=== PATIENT | female | born 1970 | race Hispanic/Latino ===

== ENCOUNTER → 2017-07-30 | Outpatient (CLI) | payer OTHER ==
--- NOTE | 2017-07-30 10:38 | Diagnostic Imaging Report ---
EXAMINATION: Bilateral breast ultrasound. INDICATION: Bilateral breast lumps. FINDINGS: By history, the patient has palpable abnormalities in the upper-outer aspect of each breast. The diagnostic mammogram performed earlier today in conjunction with this study failed to show any discrete mass in either the right or the left breast. On this study, there is no solid or cystic mass evident in the right breast. I suspect that the palpable abnormality in question may be secondary to fibroglandular tissue alone; however, if clinical concern regarding an underlying abnormality persists, then biopsy should still be considered. In the area of the patient's palpable abnormality in the left breast in the 2 o'clock position roughly 1 cm from the nipple, there is a crescentic 1.5 x 0.6 x 1.2 cm avascular hypoechoic lesion with through-transmission. I suspect that this is a cyst. The configuration of this cyst is somewhat unusual but there is no sign of an intracystic mass. There may be a few internal echoes suggesting that this cyst has been slightly complicated by infection and/or hemorrhage. I would recommend that a short-term (3 month) followup ultrasound exam of the left breast be obtained for continued evaluation. There is no solid lesion identified in the left breast otherwise. IMPRESSION: 1. There is no abnormality involving the right breast to coincide with the patient's palpable mass. Recommendations as above. 2. There is a slightly complicated cyst in the region of the patient's palpable abnormality in the left breast. A short-term followup ultrasound exam of the left breast would be recommended for further evaluation. ACR BI-RADS Category 3: Probably benign findings. Dictated by: Dictated on workstation # [id number]
--- NOTE | 2017-07-30 18:58 | Diagnostic Imaging Report ---
INDICATION: Digital mammogram bilateral diagnostic. This study was compared to prior exams of 08/10/2015, 07/27/2014 and 10/14/2012. The current study was also evaluated with a Computer Aided Detection (CAD) system. FINDINGS: At this time, the patient does complain of lumps in the upper-outer quadrant of each breast. Marker was placed over the areas of concern. The fibroglandular tissue in both breasts is dense. This does limit the sensitivity of this exam. When compared to the previous study, there does not appear to have been any significant change. There are few benign-appearing calcifications scattered throughout both breasts, but there is no primary or secondary sign of malignancy noted. In particular, there is no evidence for an abnormality in the area of the patient's palpable masses in the upper aspects of each breast. Even so, I would recommend that ultrasound of both breasts be performed for further study. IMPRESSION: There is no evidence of malignancy. Ultrasound of both breasts would be recommended for further evaluation, however. ACR BI-RADS Category 0: Incomplete. (Needs additional imaging evaluation). Result letter will be mailed to the patient. Note: At least 10% of breast cancer is not imaged by mammography. Dictated by: Dictated on workstation # [id number]
== END ==
LOC: RAD 07:53
PROVIDERS: ATTEND Nurse Practitioner Family
DX: R92.8 Other abnormal and inconclusive findings on diagnostic imaging of breast (principal)
CPT/HCPCS: 76642; 77066

== ENCOUNTER → 2017-10-27 | Outpatient (CLI) | payer OTHER ==
--- NOTE | 2017-10-27 10:28 | Diagnostic Imaging Report ---
INDICATION: Three-month followup of left breast cyst. COMPARISON: 07/30/2017. TECHNIQUE: Sonographic interrogation at the 2 o'clock location of the left breast 1 cm from the nipple was performed. FINDINGS: There continues to be a slightly elongated cystic lesion at this location measuring 12 mm x 6 mm x 7 mm compared with 16 mm x 6 mm x 12 mm on the prior exam. No new mass is identified. No other abnormality is seen. IMPRESSION: There has been a mild decrease in the size of a cystic mass at the 2 o'clock location of the left breast 1 cm from the nipple when compared with the examination from 3 months earlier. An additional 3 month followup is recommended with ultrasound to show continued stability. ACR BI-RADS Category 3: Probably benign findings. Dictated by: Dictated on workstation # [id number]
== END ==
LOC: RAD 09:06
PROVIDERS: ATTEND Nurse Practitioner Family
DX: N60.02 Solitary cyst of left breast (principal)
CPT/HCPCS: 76642

== ENCOUNTER → 2018-02-12 | Outpatient (CLI) | payer OTHER ==
--- NOTE | 2018-02-12 19:26 | Diagnostic Imaging Report ---
Ultrasound of left breast limited. INDICATION: Followup exam. FINDINGS: The recent left breast ultrasound exam performed on 10/27/17 noted a 12 x 6 x 7 mm elongate cyst in the 2 o'clock position roughly 1 cm from the nipple. On this exam, that cyst appears to have resolved. IMPRESSION: 1. The cyst in the left breast seen on the prior exam is no longer evident. 2. The patient should have her annual bilateral screening mammogram on schedule in July of 2018. ACR BI-RADS Category 1: Negative. Dictated by: Dictated on workstation # [id number]
== END ==
LOC: RAD 08:52
PROVIDERS: ATTEND Nurse Practitioner Family
DX: N63.0 Unspecified lump in unspecified breast (principal)
CPT/HCPCS: 76642